=== PATIENT | female | born 1985 | race Caucasian/White ===

== ENCOUNTER 2022-02-01 15:05 | Outpatient (CLI) | payer OTHER | END 2022-02-01 16:30 | disposition home or self-care (01) | LOC: PRENATAL 15:05 | PROVIDERS: ATTEND Obstetrics & Gynecology Maternal & Fetal Medicine | DX: O36.80X0 Pregnancy with inconclusive fetal viability, not applicable or unspecified (principal); O09.219 Supervision of pregnancy with history of pre-term labor, unspecified trimester; Z3A.12 12 weeks gestation of pregnancy; O42.90 Premature rupture of membranes, unspecified as to length of time between rupture and onset of labor, unspecified weeks of gestation ==

== ENCOUNTER 2022-03-31 13:05 | Outpatient (CLI) | payer OTHER | END 2022-03-31 15:00 | disposition home or self-care (01) | LOC: PRENATAL 13:05 | PROVIDERS: ATTEND Obstetrics & Gynecology Maternal & Fetal Medicine | DX: O35.3XX0 Maternal care for (suspected) damage to fetus from viral disease in mother, not applicable or unspecified (principal); O09.219 Supervision of pregnancy with history of pre-term labor, unspecified trimester; O35.9XX0 Maternal care for (suspected) fetal abnormality and damage, unspecified, not applicable or unspecified ==

== ENCOUNTER 2022-07-23 12:26 | Outpatient (CLI) | payer OTHER | END 2022-07-23 13:55 | disposition home or self-care (01) | LOC: PRENATAL 12:26 | PROVIDERS: ATTEND Obstetrics & Gynecology Maternal & Fetal Medicine | DX: O26.849 Uterine size-date discrepancy, unspecified trimester (principal); O09.529 Supervision of elderly multigravida, unspecified trimester; O36.8199 Decreased fetal movements, unspecified trimester, other fetus; O36.5990 Maternal care for other known or suspected poor fetal growth, unspecified trimester, not applicable or unspecified; Z3A.36 36 weeks gestation of pregnancy ==

== ENCOUNTER 2022-08-04 07:27 | Inpatient (IN) | payer OTHER ==
[~2022-08-04] VITALS: Ht 167.6 cm; Wt 71.2 kg
[2022-08-04] MEDS ORDERED: PRENATAL + DHA1 EAC1 PO (11:13)
[2022-08-05] MEDS ORDERED: ATABEX OB TABL1 EACH (11:17)
== END 2022-08-06 17:34 | disposition home or self-care (01) | DRG 807 ==
LOC: LDR 07:27 → OB/GYN 07:27 → LDR 10:55 → OB/GYN 19:25
PROVIDERS: ADMIT Obstetrics & Gynecology; ATTEND Obstetrics & Gynecology
PROC: 10E0XZZ Delivery of Products of Conception, External Approach (ICD-10-PCS; principal; 2022-08-04)
PROC: 4A1HXCZ Monitoring of Products of Conception, Cardiac Rate, External Approach (ICD-10-PCS; 2022-08-04)
DX: O80 Encounter for full-term uncomplicated delivery (principal); Z37.0 Single live birth; Z3A.38 38 weeks gestation of pregnancy; Z20.822 Contact with and (suspected) exposure to COVID-19